=== PATIENT | female | born 1995 | race Caucasian/White ===

== ENCOUNTER 2021-11-22 15:57 | Emergency (ER) | payer MEDICAID ==
[~2021-11-22] VITALS: Ht 165.1 cm; Wt 68.0 kg
[2021-11-22 16:40] LABS: BASO % 0.1 % (0.0-1.0); EOS % 0.1 % (1.0-4.0); HEMATOCRIT 35.6 % (37.0-47.0); LYMPH # 1.7 10*3/uL (1.3-4.4); LYMPH % 10.6 % (27.0-41.0); MEAN CELL VOLUME 90.1 fl (81.0-99.0); MEAN CORPUSCULAR HGB 29.9 pg (27.0-31.0); MEAN CORPUSCULAR HGB CONC 33.1 g/dl (33.0-37.0); MEAN PLATELET VOLUME 9.1 fl (9.6-12.3); MONO # 0.5 10*3/uL (0.1-1.0); NEUT % 85.8 % (47.0-73.0); PLATELET COUNT AUTOMATED 309 10*3/uL (130-400); RED BLOOD COUNT 3.95 10*6/uL (4.10-5.10); RED CELL DISTRI WIDTH 14.1 % (0-14.5); WHITE BLOOD COUNT 16.3 10*3/uL (4.8-10.8)
[2021-11-22 17:10] LABS: BILIRUBIN Negative (Negative); BLOOD 1+ (Negative); CLARITY Cloudy (Clear); COLOR Yellow (Yellow); GLUCOSE Negative (Negative); KETONE Trace (Negative); LEUKO ESTERASE 3+ (Negative); NITRITE Positive (Negative); PH 6.5 (4.5-8.0)
[2021-11-22 17:23] LABS: BUN 8 mg/dl (7-24); CHLORIDE 102 mmol/L (98-107); CREATININE 0.69 mg/dL (0.55-1.02); LIPASE 58 U/L (73-393); POTASSIUM 3.5 mmol/L (3.5-5.1); SGOT/AST 14 IU/L (3-35); SGPT/ALT 25 U/L (12-78); SODIUM 133 mmol/L (136-145)
[2021-11-22 17:25] LABS: EPITHELIAL CELLS 16-20; WBC TNTC wbc/hpf (0-5)
[2021-11-22 17:26] LABS: BACTERIA 4+
[2021-11-22 17:26] LABS: ALKALINE PHOSPHATASE 93 U/L (45-117); TOTAL PROTEIN 7.6 gm/dL (6.4-8.2)
[2021-11-22] MEDS ORDERED: CEFDINIR300 MG PO (18:20)
[2021-11-22] MEDS ORDERED: HYDROCODONE-AC1 EAC1 PO (18:22)
[2021-11-22] MEDS ORDERED: FLAGYL 375375 MG PO (18:34)
== END 2021-11-22 19:59 | disposition home or self-care (01) ==
LOC: ED 15:57
PROVIDERS: Internal Medicine
DX: N39.0 Urinary tract infection, site not specified (principal); R11.0 Nausea; Z88.2 Allergy status to sulfonamides